=== PATIENT | male | born 1980 | race Caucasian/White ===

== ENCOUNTER 2017-11-19 18:52 | Observation (INO) ==
--- NOTE | 2017-11-19 19:29 | ED ---
HPI General Chief Complaint: Chest Pain Stated Complaint: Medical Time Seen by Provider: 11/19/17 18:56 Source: patient and EMS Mode of arrival: EMS Limitations: no limitations History of Present Illness HPI narrative: 37 yo male here for evaluation of chest pain. Patient reports having had two glasses of wine and smoked a "bowl" and was going to go to the store and apparently became unresponsive per EVAC. Unclear as to how long he was out. He states he does remember feeling a pain to his left chest like a burning before he lost consciousness. EVAC was able to arouse him and given nitro and aspirin. pain did improved. Still has pain like a burning. per patient significant history of cardiac disease in the family with multiple members dying from heart disease. Smokes cigarrettes. No other drug use. No SOB. No recent travel. No medical problems per patient. Has no other complains. Concerned about the chest pain. Complete Quality Measures for STEMI Alert Patients Related Data Home Medications Medication Instructions Recorded Confirmed amoxicillin 500 mg PO QID 11/19/17 11/19/17 Allergies Allergy/AdvReac Type Severity Reaction Status Date / Time No Known Allergies Allergy Unverified 11/19/17 18:59 Review of Systems ROS: all other systems reviewed are negative [facility] Medical History Medical History Patient denies medical problems (Acute) Social History Social History Substance History: No History of Abuse Second Hand Smoke Exposure: No Smoking Status: Current every day smoker Tobacco Type: Cigarettes Packs Per Day: 0.5 Cigarettes Per Day: 10.0 How Often Do You Have a Drink Containing Alcohol: 4 or more times a week (2 glasses of wine nightly) Recent Travel in [facility] within the Last 8 Weeks: No Recent Out of Country Travel within the Last 8 Weeks: No Substance Abuse Detail Marijuana: Substance Use Status: Active Immunization History Tetanus Immunization: Unsure Hx Influenza Vaccine This Season: No Exam Narrative Exam Narrative: GENERAL: SKIN: Warm and dry. HEAD: Atraumatic. Normocephalic. EYES: Pupils equal and round. No scleral icterus. No injection or drainage. ENT: No nasal bleeding or discharge. Mucous membranes pink and moist. NECK: Trachea midline. No JVD. CARDIOVASCULAR: Regular rate and rhythm. No murmurs, S3, S4. RESPIRATORY: No accessory muscle use. Clear to auscultation. Breath sounds equal bilaterally. GASTROINTESTINAL: Abdomen soft, non-tender, nondistended. Hepatic and splenic margins not palpable. MUSCULOSKELETAL: Extremities without clubbing, cyanosis, or edema. No obvious deformities. Full ROM of the upper and lower extremities. 2+ pulses bilaterally. NEUROLOGICAL: Awake and alert. No obvious cranial nerve deficits. Motor grossly within normal limits. Five out of 5 muscle strength in the arms and legs. Normal speech. PSYCHIATRIC: Appropriate mood and affect; insight and judgment normal. Course Initial Documented Vital Signs Pulse Rate 95 H 11/19/17 18:59 Respiratory Rate 19 11/19/17 18:59 Blood Pressure 129/75 11/19/17 18:59 Pulse Oximetry 95 11/19/17 18:59 Last Documented Vital Signs Temperature 98.7 F 11/20/17 07:00 Pulse Rate 67 11/20/17 07:00 Respiratory Rate 18 11/20/17 07:00 Blood Pressure 120/72 11/20/17 07:00 Pulse Oximetry 97 11/20/17 07:45 Clinical Decision Support PERC Rule Age greater than or equal to 50: No HR greather than or equal to 100: No Sa02 on room air is less than 95%: No Unilateral Leg Swelling: No Hemoptysis: No Recent Surgery or Trauma: No Prior PE or DVT: No Hormone Use: No Wells' Criteria Questions Clinical Signs and Symptoms of DVT: No PE is primary diagnosis or equally likely: No Heart Rate greater than 100: No Immobilized at least 3 days or Surgery in previous 4 weeks: No Previous, objectively diagnosed PE or DVT: No Hemoptysis: No Malignancy with treatment within 6 months or palliative: No Wells' Criteria Score Wells' Criteria Score: 0 Medical Decision Making DONALD Attestation DONALD supervised visit: Yes Attestation: I, Dr. Martin, have reviewed the advance practice practitioner's documentation and am in agreement, met with the patient face to face, made the diagnosis, and the medical decision making was done by me. The patient was initially evaluated by sukhdev Bravo PA. Please see their complete history and physical. *My assessment and Findings: The patient presents with a history of chest pain associated with syncope prior to arrival. The patient reports having 2-3 day history of left-sided chest pain. The patient initially had reported that was a burning sensation. The patient reports that this evening he had dyspnea with exertion just from walking across his home. The patient then had an episode of syncope that was witnessed by a friend. Patient reports that he awoke on the floor. The patient denies any specific injury related to the fall, however he reports having a little soreness to the right roman catholic. During the course of the patient's emergency department visit, the patient's history, examination, and differential diagnosis were reviewed with the patient. The patient was placed on a nuclear monitoring technician with oximetry and frequent blood pressure monitoring. The patient had IV access obtained and blood work sent for analysis. The patient was initially provided normal saline IV fluids. The patient's laboratory studies were reviewed and remarkable for unremarkable. Radiology studies were reviewed and remarkable for a chest x-ray and CT scan of the brain that showed no acute abnormality. The patient's results were discussed with the patient, including the plan of care. I explained that further testing and/ or monitoring is indicated based on the patient's history, examination, and/ or laboratory findings. Therefore, I recommended admission for additional evaluation. The patient expressed understanding and was agreeable with this plan. The patient was admitted to the hospital in stable condition and sent to a bed under the care of the [facility]. [facility] Narrative Medical decision making narrative: 37 yo male here for evaluation of chest pain. Patient was properly examined and was found to have signs and symptoms consistent appears to be possible cardiac chest pain. He does have a family history of heart disease as well as history of smoking. Patient allegedly had a possible syncopal episode after smoking pot and drinking wine. Labs and imaging were ordered. Patient already given aspirin and nitroglycerin with improvement of symptoms. Labs and imaging were essentially unremarkable for acute disease. CT was negative for acute disease. Case was discussed with my attending Dr. Martin who personally evaluated the patient and recommends admission to the chest pain center for further evaluation as patient does have chest pain and needs to be worked up for cardiac. Patient was admitted to the chest pain center. Patient agrees with this. Medical Screen Exam Complete: Yes Emergency Medical Condition: Yes Differential Diagnosis Differential Diagnosis: ACS vs syncope vs substance abuse vs chest pain vs atypical chest pain Medical Records Medical records reviewed: Yes I reviewed the patient's medical records. Lab Data Lab results reviewed: Yes I reviewed the patient's lab results. Lab results narrative: troponin and CKMB negative Result diagrams: 11/19/17 19:10 11/19/17 19:10 Lab Results 11/19/17 11/19/17 11/19/17 Range/Units 19:10 19:10 19:10 WBC 14.4 H (4.0-11.0) th/mm3 RBC 4.94 (4.50-5.90) mil/mm3 Hgb 16.7 (13.0-17.0) gm/dL Hct 48.6 (39.0-51.0) % MCV 98.4 (80.0-100.0) fL MCH 33.9 (27.0-34.0) pg MCHC 34.4 (32.0-36.0) % RDW 14.1 (11.6-17.2) % Plt Count 319 (150-450) th/mm3 MPV 9.0 (7.0-11.0) fL Neut % (Auto) 71.6 H (16.0-70.0) % Lymph % (Auto) 22.0 (9.0-44.0) % Saline % (Auto) 4.8 (0.0-8.0) % Eos % (Auto) 1.0 (0.0-4.0) % Baso % (Auto) 0.6 (0.0-2.0) % Neut # (Auto) 10.3 H (1.8-7.7) th/mm3 Lymph # (Auto) 3.2 (1.0-4.8) th/mm3 Saline # (Auto) 0.7 (0.0-0.9) th/mm3 Eos # (Auto) 0.1 (0.0-0.4) th/mm3 Baso # (Auto) 0.1 (0.0-0.2) th/mm3 WBC Differential . Differential Comment Auto diff final PT 9.6 L (9.8-11.6) sec INR 0.9 Ratio APTT 23.0 L (24.3-30.1) sec Sodium 142 (136-145) meq/L Potassium 3.7 (3.5-5.1) meq/L Chloride 106 (98-107) meq/L Carbon Dioxide 25.6 (21.0-32.0) meq/L Anion Gap 10 (5-15) meq/L BUN 9 (7-18) mg/dL Creatinine 1.02 (0.60-1.30) mg/dL Estimated GFR 81 L (>89) mL/min Random Glucose 93 (74-106) mg/dL Calcium 8.7 (8.5-10.1) mg/dL Total Bilirubin 0.5 (0.2-1.0) mg/dL AST 32 (15-37) U/L ALT 59 (12-78) U/L Alkaline Phosphatase 73 (45-117) U/L Total Creatine Kinase 129 (39-308) U/L CK-MB (CK-2) Less than 1.0 (0.5-3.6) ng/mL Troponin I Less than 0.02 L (0.02-0.05) ng/mL Total Protein 7.6 (6.4-8.2) g/dL Albumin 4.1 (3.4-5.0) g/dL Urine Opiates Screen (Neg) Ur Barbiturates Screen (Neg) Ur Amphetamines Screen (Neg) U Benzodiazepines Scrn (Neg) Urine Cocaine Screen (Neg) U Cannabinoids Screen (Neg) 11/19/17 11/20/17 11/20/17 Range/Units 22:30 01:20 06:45 WBC (4.0-11.0) th/mm3 RBC (4.50-5.90) mil/mm3 Hgb (13.0-17.0) gm/dL Hct (39.0-51.0) % MCV (80.0-100.0) fL MCH (27.0-34.0) pg MCHC (32.0-36.0) % RDW (11.6-17.2) % Plt Count (150-450) th/mm3 MPV (7.0-11.0) fL Neut % (Auto) (16.0-70.0) % Lymph % (Auto) (9.0-44.0) % Saline % (Auto) (0.0-8.0) % Eos % (Auto) (0.0-4.0) % Baso % (Auto) (0.0-2.0) % Neut # (Auto) (1.8-7.7) th/mm3 Lymph # (Auto) (1.0-4.8) th/mm3 Saline # (Auto) (0.0-0.9) th/mm3 Eos # (Auto) (0.0-0.4) th/mm3 Baso # (Auto) (0.0-0.2) th/mm3 WBC Differential Differential Comment PT (9.8-11.6) sec INR Ratio APTT (24.3-30.1) sec Sodium (136-145) meq/L Potassium (3.5-5.1) meq/L Chloride (98-107) meq/L Carbon Dioxide (21.0-32.0) meq/L Anion Gap (5-15) meq/L BUN (7-18) mg/dL Creatinine (0.60-1.30) mg/dL Estimated GFR (>89) mL/min Random Glucose (74-106) mg/dL Calcium (8.5-10.1) mg/dL Total Bilirubin (0.2-1.0) mg/dL AST (15-37) U/L ALT (12-78) U/L Alkaline Phosphatase (45-117) U/L Total Creatine Kinase 104 112 (39-308) U/L CK-MB (CK-2) Less than 1.0 Less than 1.0 (0.5-3.6) ng/mL Troponin I Less than 0.02 L Less than 0.02 L (0.02-0.05) ng/mL Total Protein (6.4-8.2) g/dL Albumin (3.4-5.0) g/dL Urine Opiates Screen Neg (Neg) Ur Barbiturates Screen Neg (Neg) Ur Amphetamines Screen Neg (Neg) U Benzodiazepines Scrn Neg (Neg) Urine Cocaine Screen Neg (Neg) U Cannabinoids Screen Pos H (Neg) Imaging Data Attestation: I personally reviewed and interpreted this imaging study as follows : Radiologist's impression: Chest X-Ray 11/19/17 19:03 CONCLUSION: No acute cardiopulmonary disease. Head CT 11/19/17 19:52 CONCLUSION: Unremarkable study. . ECG Data Attestation: I personally reviewed and interpreted this ECG as follows: Interpretation: EKG shows sinus rhythm with no sign of acute ischemia read by me and attending. No ST elevations noted. rate of 91 bpm. Discharge Plan Discharge Disposition Patient Disposition: 30 Still Patient Discharge Condition Condition: Good Discharge Order Discharge Orders: Discharge Order (Routine); Ordered 11/20/17 Ordered By: Loretta Guaman Discharge Details Anticipated Discharge Date: 11/20/17 Diagnosis: Chest pain Physicians Team ED Provider: Yumiko Martin ED Midlevel Provider: Lawrence Cueva Primary Care Provider: Primary Care Seema Paris Attending Provider: Krunal Denton Status ED Status: Left Department Discharge Information Discharge Date/Time: 11/19/17 23:11
--- NOTE | 2017-11-19 19:32 | XR ---
EXAM DATE: 11/19/2017 7:23 PM EDT AGE/SEX: 37 years / Male INDICATIONS: Shortness of breath and left sided chest pain. CLINICAL DATA: This is the patient's initial encounter. Patient reports that signs and symptoms have been present for 3 days and indicates a pain score of 4/10. MEDICAL/SURGICAL HISTORY: None. None. COMPARISON: No prior exams available for comparison. FINDINGS: The lungs are clear without infiltrate, nodule, or mass. There is no appreciable pleural effusion for technique. Heart and mediastinum are unremarkable. CONCLUSION: No acute cardiopulmonary disease. Electronically signed by: Ciera Couch MD 11/19/2017 7:30 PM EDT
[2017-11-19 19:36] LABS: Baso # (Auto) 0.1 th/mm3 (0.0-0.2); Baso % (Auto) 0.6 % (0.0-2.0); Eos # (Auto) 0.1 th/mm3 (0.0-0.4); Hematocrit 48.6 % (39.0-51.0); Hemoglobin 16.7 gm/dL (13.0-17.0); Lymph # (Auto) 3.2 th/mm3 (1.0-4.8); Mean Corpuscular HGB Conc 34.4 % (32.0-36.0); Mean Corpuscular Hemoglobin 33.9 pg (27.0-34.0); Mean Corpuscular Volume 98.4 fL (80.0-100.0); Mono # (Auto) 0.7 th/mm3 (0.0-0.9); Mono % (Auto) 4.8 % (0.0-8.0); Neut # (Auto) 10.3 th/mm3 (1.8-7.7); Neut % (Auto) 71.6 % (16.0-70.0); Platelet Count 319 th/mm3 (150-450); Red Blood Count 4.94 mil/mm3 (4.50-5.90); Red Cell Distribution Width 14.1 % (11.6-17.2); White Blood Count 14.4 th/mm3 (4.0-11.0)
[2017-11-19 19:50] LABS: INR 0.9 Ratio; Prothrombin Time 9.6 sec (9.8-11.6)
[2017-11-19] MEDS ORDERED: Sodium Chlor 0.9% Inj 500 ML IV.SIG ONE (19:52)
[2017-11-19] MEDS ORDERED: Thiamine Inj 100 MG in Sodium Chlor 0.9% Inj 100 ML IV.SIG ONE (19:52)
[2017-11-19 19:57] LABS: Albumin 4.1 g/dL (3.4-5.0); Anion Gap 10 meq/L (5-15); Aspartate Aminotransferase 32 U/L (15-37); Blood Urea Nitrogen 9 mg/dL (7-18); Calcium 8.7 mg/dL (8.5-10.1); Carbon Dioxide 25.6 meq/L (21.0-32.0); Chloride 106 meq/L (98-107); Glomerular Filtration Rate 81 mL/min (>89); Glucose,Random 93 mg/dL (74-106); Potassium 3.7 meq/L (3.5-5.1); Sodium 142 meq/L (136-145)
[2017-11-19 19:59] LABS: Alanine Aminotransferase 59 U/L (12-78)
[2017-11-19 20:02] LABS: Alkaline Phosphatase 73 U/L (45-117); Creatine Kinase 129 U/L (39-308); Total Protein 7.6 g/dL (6.4-8.2)
--- NOTE | 2017-11-19 20:59 | CT ---
EXAM DATE: 11/19/2017 8:51 PM EDT AGE/SEX: 37 years / Male INDICATIONS: Headaches. CLINICAL DATA: This is the patient's initial encounter. Patient reports that signs and symptoms have been present for 1 day and indicates a pain score of 5/10. MEDICAL/SURGICAL HISTORY: None. c None. RADIATION DOSE: 34.87 CTDI (mGy) COMPARISON: No prior exams available for comparison. TECHNIQUE: CT of the head without contrast. Using automated exposure control and adjustment of the mA and/or kV according to patient size, radiation dose was kept as low as reasonably achievable to ob tain optimal diagnostic quality images. DICOM format image data is available electronically for revi ew and comparison. FINDINGS: There is no evidence for intracranial hemorrhage, mass effect, mass lesions, edema, or extra-axial fl uid collections. The visualized bony structures appear intact. The ventricles are normal size for t he patient's age. There are no signs of acute infarction for technique. CONCLUSION: Unremarkable study. . Electronically signed by: Ciera Couch MD 11/19/2017 8:57 PM EDT
[2017-11-19] MEDS ORDERED: Acetaminophen 500 MG Tablet PO PRN (21:02)
--- NOTE | 2017-11-19 21:48 | ECG ---
Date Performed: 11/19/2017 Time Performed: 18:54:17 PTAGE: 37 years EKG: Sinus rhythm POSSIBLE LEFT ATRIAL ENLARGEMENT POSSIBLE LEFT VENTRICULAR HYPERTROPHY ABNORMAL ECG INTERPRETATION B ASED ON A DEFAULT AGE OF 88 YEARS NO PREVIOUS TRACING DOCTOR: Deon Hernandez Interpretating Date/Time 11/19/2017 21:46:31
[2017-11-19 23:23] LABS: Creatine Kinase 104 U/L (39-308)
[2017-11-20 01:59] LABS: Creatine Kinase 112 U/L (39-308)
[2017-11-20 08:06] LABS: Amphetamine Screen,Urine Neg (Neg); Barbiturate Screen,Urine Neg (Neg); Cannabinoid Screen,Urine Pos (Neg); Cocaine Screen,Urine Neg (Neg)
--- NOTE | 2017-11-20 08:07 | P.HPCA ---
History of Present Illness Primary Care Physician: No Primary Care Physician Chief Complaint: Chest pain History of Present Illness: 37-year-old male with no past significant history presents the emergency room for further evaluation of nonexertional chest pain. Onset last night. Location left anterior chest. Characterized as burning, tightness, and "heat." Associated symptoms included dyspnea, nausea, and 1 non-bloody emesis. Denied diaphoresis. Duration "maybe one hour, I am not really sure." States "I must have passed out." The next thing he remembers is EVAC around him, apparently his girlfriend called EMS. Endorses regular marijuana use, smoking a "bowl" yesterday and drinking 2 glasses of wine which is normal for him. Denies similar pain in the past. Currently reports substernal chest soreness related to sternal rub given by EMS and not "feeling right." Denies dizziness, headache , or any particular symptoms. No recent illness, fever, or injury. Denies known diabetes, hypertension, or hyperlipidemia. Past cardiac testing None Social history Lives with girlfriend. 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 Endorses any active lifestyle. Current 1/2 pack day smoker, drinks 2 glasses of wine nighty, and smokes marijuana regularly. Denies any other recreational drug. Family history Father age 55 from [place]. Grandfather age 58 [place]. - Diagnosis (1) Atypical chest pain (2) Syncopal episodes (3) Tobacco use (4) Marijuana use Review of Systems All other systems reviewed negative except as stated in HPI PMFSH - History History Provided By: Patient - Medical History Medical History: Medical History (Last Reviewed 11/19/17 @ 19:27 by SELAM Fernando) Patient denies medical problems - Tobacco History Second Hand Smoke Exposure: No Tobacco Use In Past 30 Days: Yes Smoking Status: Current every day smoker Tobacco Type: Cigarettes Packs Per Day: 0.5 - Alcohol History How Often Do You Have a Drink Containing Alcohol: 4 or more times a week (2 glasses of wine nightly) - Substance Use History Substance History: No History of Abuse - Substance Use Type Marijuana Status: Active - Travel History Recent Travel in the [place] Within the Last 8 Weeks: No Recent Travel Out of the Country Within the Last 8 Weeks: No - Immunization History Tetanus Immunization: Unsure Hx Influenza Vaccine This Season: No Medications and Allergies Active Medications: Active Medications Acetaminophen (Tylenol) 500 mg PO Q4H PRN PRN Reason: HEADACHE Hydrocodone Bitart/Acetaminophen (Ray 7.5/325) 1 tab PO Q4H PRN PRN Reason: PAIN SCALE 1 TO 7 Ondansetron HCl (Zofran Inj) 4 mg IV.PUSH Q6H PRN PRN Reason: NAUSEA Sodium Chloride (Ns Flush) 2 ml IV.FLUSH BID RICHAR Sodium Chloride (Ns Flush) 2 ml IV.FLUSH PRN PRN PRN Reason: FLUSH AFTER USING IV ACCESS Allergies Allergy/AdvReac Type Severity Reaction Status Date / Time No Known Allergies Allergy Unverified 11/19/17 18:59 Home Medications Medication Instructions Recorded Confirmed Type amoxicillin 500 mg PO QID 11/19/17 11/19/17 History Exam Vital signs: Vital Signs 11/19/17 18:59 11/19/17 19:30 11/19/17 20:00 Temperature Pulse Rate 95 H 75 Respiratory Rate 19 18 Blood Pressure 129/75 129/75 Pulse Oximetry 95 98 11/19/17 23:18 11/20/17 01:46 11/20/17 05:08 Temperature 98.4 F Pulse Rate 61 70 60 Respiratory Rate 16 20 Blood Pressure 124/66 127/60 Pulse Oximetry 96 11/20/17 07:00 Temperature 98.7 F Pulse Rate 67 Respiratory Rate 18 Blood Pressure 120/72 Pulse Oximetry 97 Intake & Output 11/19/17 11/20/17 11/20/17 18:59 06:59 18:59 Intake Total 601 / 601 Balance 601 / 601 Weight 83.915 kg 83.915 kg Intake: IV 601 / 601 NS Inj 500 ML @ Wide Open IV. 500 / 500 SIG BOLUS ONE Rx#:[id number] Thiamine Inj 100 MG In NS Inj 101 / 101 100 ML @ 100 mls/hr IV.SIG ONCE ONE Rx#:[id number] Other: # Voids 2 Date of Last Bowel Movement 11/19/17 Narrative: GENERAL: Alert WN, WD, NAD, male HEAD: NC, AT CV: RRR, without murmur, rub, gallop, no JVD, S1-S2 no S3-S4. Chest wall nontender to palpation. RESP: Clear lungs throughout bilateral, no crackles, wheeze, rhonchi, symmetrical chest rise, nonlabored, able to speak in full sentences ABD: Soft, NT, ND, no masses, positive bowel tones EXT: Pulses +2x4, no dependent edema MS: Normal tone x4 extremities, nontender, no obvious deformities, full range of motion NEURO: CN II through CN XII grossly intact, motor strength 5/5, gait WNL PSYCH: A+O x3, flat affect, appropriate speech, mood, insight and judgment SKIN: Normal turgor, normal texture, no lesions, no rashes, brisk cap refill, even hair distribution, multiple tattoos Results 11/19/17 19:10 11/19/17 19:10 Cardiac Enzymes 11/19/17 11/19/17 11/20/17 Range/Units 19:10 22:30 01:20 AST 32 (15-37) U/L CK-MB (CK-2) Less than 1.0 Less than 1.0 Less than 1.0 (0.5-3.6) ng/mL Troponin I Less than 0.02 L Less than 0.02 L Less than 0.02 L (0.02-0.05) ng/mL Coagulation 11/19/17 Range/Units 19:10 PT 9.6 L (9.8-11.6) sec APTT 23.0 L (24.3-30.1) sec CBC 11/19/17 Range/Units 19:10 WBC 14.4 H (4.0-11.0) th/mm3 RBC 4.94 (4.50-5.90) mil/mm3 Hgb 16.7 (13.0-17.0) gm/dL Hct 48.6 (39.0-51.0) % Plt Count 319 (150-450) th/mm3 Neut # (Auto) 10.3 H (1.8-7.7) th/mm3 Lymph # (Auto) 3.2 (1.0-4.8) th/mm3 [place] # (Auto) 0.7 (0.0-0.9) th/mm3 Eos # (Auto) 0.1 (0.0-0.4) th/mm3 Baso # (Auto) 0.1 (0.0-0.2) th/mm3 Comprehensive Metabolic Panel 11/19/17 Range/Units 19:10 Sodium 142 (136-145) meq/L Potassium 3.7 (3.5-5.1) meq/L Chloride 106 (98-107) meq/L Carbon Dioxide 25.6 (21.0-32.0) meq/L BUN 9 (7-18) mg/dL Creatinine 1.02 (0.60-1.30) mg/dL Calcium 8.7 (8.5-10.1) mg/dL AST 32 (15-37) U/L ALT 59 (12-78) U/L Alkaline Phosphatase 73 (45-117) U/L Total Protein 7.6 (6.4-8.2) g/dL Albumin 4.1 (3.4-5.0) g/dL Intake and Output 11/19/17 11/20/17 11/20/17 22:59 06:59 14:59 Intake Total 601 / 601 Balance 601 / 601 Intake: IV 601 / 601 NS Inj 500 ML @ Wide Open IV. 500 / 500 SIG BOLUS ONE Rx#:[id number] Thiamine Inj 100 MG In NS Inj 101 / 101 100 ML @ 100 mls/hr IV.SIG ONCE ONE Rx#:[id number] Other: # Voids 2 Date of Last Bowel Movement 11/19/17 Weight 83.915 kg 83.915 kg EKG interpretations - EKG EKG results cardiology: sinus rhythm, normal axis, normal QRS, normal ST/T Caprini VTE Risk Assessment Caprini VTE Risk Assessment: No/Low Risk (score <= 1) Caprini Risk Assessment Model: Point Value = 1 Point Value = 2 Point Value = 3 Point Value = 5 Age 41-60 Minor surgery BMI > 25 kg/m2 Swollen legs Varicose veins or History of unexplained or recurrent spontaneous Oral contraceptives or hormone replacement Sepsis (< 1 month) Serious lung disease, including pneumonia (< 1 month) Abnormal pulmonary function Acute myocardial infarction Congestive heart failure (< 1 month) History of inflammatory bowel disease Medical patient at bed rest Age 61-74 Arthroscopic surgery Major open surgery (> 45 min) Laparoscopic surgery (> 45 min) Malignancy Confined to bed (> 72 hours) Immobilizing plaster cast Central venous access Age >= 75 History of VTE Family history of VTE Factor V Leiden Prothrombin [id number] Lupus anticoagulant Anticardiolipin antibodies Elevated serum homocysteine Heparin-induced thrombocytopenia Other congenital or acquired thrombophilia Stroke (< 1 month) Elective arthroplasty Hip, pelvis, or leg fracture Acute spinal cord injury (< 1 month) Prophylaxis Regimen: Total Risk Factor Score Risk Level Prophylaxis Regimen 0-1 Low Early ambulation 2 Moderate Order ONE of the following: *Sequential Compression Device (SCD) *Heparin 5000 units SQ BID 3-4 Higher Order ONE of the following medications: *Heparin 5000 units SQ TID *Enoxaparin/Lovenox 40 mg SQ daily (WT < 150 kg, CrCl > 30 mL/min) *Enoxaparin/Lovenox 30 mg SQ daily (WT < 150 kg, CrCl > 10-29 mL/min) *Enoxaparin/Lovenox 30 mg SQ BID (WT < 150 kg, CrCl > 30 mL/min) AND/OR *Sequential Compression Device (SCD) 5 or more Highest Order ONE of the following medications: *Heparin 5000 units SQ TID (Preferred with Epidurals) *Enoxaparin/Lovenox 40 mg SQ daily (WT < 150 kg, CrCl > 30 mL/min) *Enoxaparin/Lovenox 30 mg SQ daily (WT < 150 kg, CrCl > 10-29 mL/min) *Enoxaparin/Lovenox 30 mg SQ BID (WT < 150 kg, CrCl > 30 mL/min) AND *Sequential Compression Device (SCD) Assessment and Plan - Assessment (1) Atypical chest pain Code(s): R07.89 - Other chest pain Status: Acute Plan: Admitted chest pain center. ACS ruled out 3 sets of EKGs and cardiac enzymes. Seen and evaluated by Dr. Tamika Hua. Proceed with exercise cardiac testing this morning. If unremarkable plans are discharge home and to establish with a primary care provider. Verbalized understanding and agreeable to plan of care. Made aware of local clinics such as [facility] and [facility]. (2) Syncopal episodes Code(s): R55 - Syncope and collapse Status: Acute Plan: CT head unremarkable. No further episodes or acute findings. Follow up with a primary care provider. (3) Tobacco use Code(s): Z72.0 - Tobacco use Status: Chronic Plan: Strongly encouraged stress importance of tobacco cessation. Instructed to quit smoking. (4) Marijuana use Code(s): F12.90 - Cannabis use, unspecified, uncomplicated Status: Chronic Plan: Strongly encouraged and stressed the importance of marijuana cessation. Instructed to quit using marijuana. Risks of potential additives to marijuana discussed in length. H&P: Quality - VTE Deep Vein Thrombosis/Pulmonary Embolism Present on Admission: No (2) Syncopal episodes Qualifiers: Syncope type: unspecified Qualified Code(s): R55 - Syncope and collapse
[2017-11-20 08:17] LABS: Opiate Screen,Urine Neg (Neg)
--- NOTE | 2017-11-20 08:37 | ECG ---
Date Performed: 11/20/2017 Time Performed: 01:24:28 PTAGE: 37 years EKG: SINUS BRADYCARDIA BORDERLINE ECG Since PREVIOUS TRACING , no significant change noted PREVIOUS TRACIN11/19/2017 18.54 DOCTOR: Tamika Hua Interpretating Date/Time 11/20/2017 08:36:25
--- NOTE | 2017-11-20 08:38 | ECG ---
Date Performed: 11/19/2017 Time Performed: 22:36:14 PTAGE: 37 years EKG: SINUS BRADYCARDIA BORDERLINE ECG Since PREVIOUS TRACING , no significant change noted PREVIOUS TRACIN11/19/2017 22.35 DOCTOR: Tamika Hua Interpretating Date/Time 11/22/2017 06:48:01
--- NOTE | 2017-11-20 16:52 | TR ---
Date Performed: 11/20/2017 Time Performed: 10:36:05 DOCTOR: Tamika Hua DRUG LIST: CLINICAL HISTORY: REASON FOR TEST: REASON FOR ENDING: OBSERVATION: CONCLUSION: [place] protocol completed. Stopped sec to exceeding target heart rate and leg fatigue . Maximum AB=845 Max HR Achieved=88.0% Maximum CQ=574/80 Total Exercise Time=10:05. No reprod chest d iscomfort. Baseline sinus arrhythmia. Great exercise tolerance. Normal bp response. Sinus arrthythmia during recovery, othersie unremarkable. Upsloping st segments. COMMENTS: no ischemia
== END 2017-11-20 12:24 | disposition home or self-care (01) ==
LOC: NEDA 18:52 → NEPE 18:52 → NEDA 23:11 → NEPFCDU 23:17
PROVIDERS: ADMIT Internal Medicine Cardiovascular Disease; ATTEND Internal Medicine Cardiovascular Disease
DX: F12.90 Cannabis use, unspecified, uncomplicated; R94.31 Abnormal electrocardiogram [ECG] [EKG]; R07.89 Other chest pain; R55 Syncope and collapse; F17.210 Nicotine dependence, cigarettes, uncomplicated